=== PATIENT | female | born 1940 | race Caucasian/White ===

== ENCOUNTER 2018-12-10 20:10 | Inpatient (IN) | payer OTHER ==
[~2018-12-10] VITALS: Ht 165.1 cm; Wt 127.0 kg
[~2018-12-10 20:10] MED LIST: BACOFLEN; CITALOPRAM HBR20 MG; CYMBALTA60 MG PO; FOSAMAX70 MG PO; KLONOPIN2 MG/TAB PO; LASIX20 MG PO; NITROQUICK0.4 MG SL; NORVASC2.5 M1; OXYCONTIN10 MG PO; PERCOCET 5/3251 TAB PO; SEROQUEL300 MG PO; SEROQUEL400 MG; SIMBALTA; SOMA250 MG PO; SYNTHROID50 MCG PO; TOPROL XL50 MG PO; ZOCOR20 MG; [UNRECOGNIZED DRUG - OTHER]
--- NOTE | 2018-12-10 20:20 | NUR ---
SE RECIBE PACIENTE ALERTA Y ORIENTADA X3 DE UNIDAD DE AMBULANCIA. PACIENTE REFIERE DIFUCLTAD RESPIRATORIA DEBIDO A WALL CONDICION DE COPD DESDE ESTA MANANA. PACIENTE SE MUESTRA SASTURANDO 90% SIN OXIGENO. SE LE COLOCA PACIENTE EN CAMA Y SE LE PONE CANULA NASAL A 3 LITROS.
--- NOTE | 2018-12-10 20:39 | NUR ---
PACIENTE ALERTA Y ORIENTADA X3. SE ORIENTA SOBRE TX Y PROCEDIMIENTO A REALIZAR Y REFIERE ENTENDER. SE ADMINISTRA MEDICAMENTO MAICOL ORDEN MEDICA. SE REALIZA MUESTRAS DE LABORATORIO BAJO MEDIDAS ASEPTICAS. PACIENTE CON CANALIZACION EN BRAZO L+. SE NOTIFICO A MR. JOSE PERSONAL DE TERAPIA RESPIRATORIA LAS MISMAS Y ABG. SE MANTIENE BAJO OBSERVACION POR CAMBIOS SIGNIFICATIVOS. PENDIENTE PLACA PORTABLE DE PECHO.
--- NOTE | 2018-12-10 23:08 | NUR ---
PTE ALERTA CONSCIENTE Y ORIENTADA X3. SEMI SENTADA CANULA NASAL A 3 LITROS. H/L PATENTE. PTE EN COMPANIA DE FAMILIAR. CONSULTADO CON MEDICINA INTERNA.
--- NOTE | 2018-12-11 07:34 | NUR ---
PTE AL MOMENTO ESTABLE, ALERTA Y ORIENTADA X3 PENDIENTE A CONSULTA CON DR. CORTES. SE CONITNUA MONITOREANDO POR CAMBIOS.
[2018-12-12] MEDS ORDERED: BACLOFEN10 MG PO (09:31)
== END 2018-12-25 17:34 | disposition home health service (06) | DRG 191 ==
LOC: ER 20:10 → MEDJ 12-11 12:35 → SEC-K 12-11 12:35 → SURH 12-11 12:35 → MEDI 12-11 12:35 → MEDJ 12-13 13:57 → SURH 12-18 02:30
PROVIDERS: ADMIT Specialist
PROC: 3E0F7GC Introduction of Other Therapeutic Substance into Respiratory Tract, Via Natural or Artificial Opening (ICD-10-PCS; principal; 2018-12-11)
PROC: 4A033R1 Measurement of Arterial Saturation, Peripheral, Percutaneous Approach (ICD-10-PCS; 2018-12-11)
PROC: 02HV33Z Insertion of Infusion Device into Superior Vena Cava, Percutaneous Approach (ICD-10-PCS; 2018-12-11)
PROC: 0T9B70Z Drainage of Bladder with Drainage Device, Via Natural or Artificial Opening (ICD-10-PCS; 2018-12-11)
PROC: BW03ZZZ Plain Radiography of Chest (ICD-10-PCS; 2018-12-13)
PROC: B246ZZZ Ultrasonography of Right and Left Heart (ICD-10-PCS; 2018-12-13)
PROC: 8E0ZXY6 Isolation (ICD-10-PCS; 2018-12-13)
DX: J44.1 Chronic obstructive pulmonary disease with (acute) exacerbation (principal); J90 Pleural effusion, not elsewhere classified; F33.1 Major depressive disorder, recurrent, moderate; J45.42 Moderate persistent asthma with status asthmaticus; B96.0 Mycoplasma pneumoniae [M. pneumoniae] as the cause of diseases classified elsewhere; J20.9 Acute bronchitis, unspecified; E66.01 Morbid (severe) obesity due to excess calories; I10 Essential (primary) hypertension; Z74.01 Bed confinement status; N39.498 Other specified urinary incontinence

== ENCOUNTER 2019-01-09 18:47 | Inpatient (IN) | payer OTHER ==
[~2019-01-09] VITALS: Ht 167.6 cm; Wt 145.1 kg
[~2019-01-09 18:47] MED LIST changes: +BACLOFEN10 MG PO
[2019-01-09] MEDS ORDERED: IBESARTAN (19:28)
[2019-01-09] MEDS ORDERED: HYDROCHLOROTH12.5 M1 (19:28)
[2019-01-09] MEDS ORDERED: AMLODIPINE BES2.5 MG (19:29)
[2019-01-09] MEDS ORDERED: INTESTINEX680 M1 (19:29)
[2019-01-09] MEDS ORDERED: DOXYCYCLINE HY100 MG (19:29)
[2019-01-09] MEDS ORDERED: SIMVASTATIN20 MG (19:30)
[2019-01-09] MEDS ORDERED: QUETIAPINE FUM400 M1 (19:31)
[2019-01-09] MEDS ORDERED: CITALOPRAM HBR20 MG (19:32)
[2019-01-11] MEDS ORDERED: AVAPRO150 MG (08:55)
== END 2019-01-19 19:34 | disposition home or self-care (01) | DRG 291 ==
LOC: ER 18:47 → SEC-K 01-10 11:55 → MEDJ 01-10 11:55
PROVIDERS: ADMIT Specialist
PROC: 3E0F7GC Introduction of Other Therapeutic Substance into Respiratory Tract, Via Natural or Artificial Opening (ICD-10-PCS; principal; 2019-01-10)
PROC: 4A033R1 Measurement of Arterial Saturation, Peripheral, Percutaneous Approach (ICD-10-PCS; 2019-01-10)
DX: I11.0 Hypertensive heart disease with heart failure (principal); I50.31 Acute diastolic (congestive) heart failure; J80 Acute respiratory distress syndrome; J44.1 Chronic obstructive pulmonary disease with (acute) exacerbation; J45.22 Mild intermittent asthma with status asthmaticus; J90 Pleural effusion, not elsewhere classified; F31.89 Other bipolar disorder; J45.40 Moderate persistent asthma, uncomplicated; Z79.4 Long term (current) use of insulin; E66.01 Morbid (severe) obesity due to excess calories; I35.0 Nonrheumatic aortic (valve) stenosis; Z74.01 Bed confinement status; E09.9 Drug or chemical induced diabetes mellitus without complications; T36 Poisoning by, adverse effect of and underdosing of systemic antibiotics; N39.498 Other specified urinary incontinence; G47.33 Obstructive sleep apnea (adult) (pediatric); J20.9 Acute bronchitis, unspecified

== ENCOUNTER 2019-05-25 19:46 | Inpatient (IN) | payer OTHER ==
[~2019-05-25] VITALS: Ht 167.6 cm; Wt 126.6 kg
[~2019-05-25 19:46] MED LIST changes: +AMLODIPINE BES2.5 MG; +AVAPRO150 MG; +DOXYCYCLINE HY100 MG; +HYDROCHLOROTH12.5 M1; +IBESARTAN; +INTESTINEX680 M1; +QUETIAPINE FUM400 M1; +SIMVASTATIN20 MG
[2019-05-25] MEDS ORDERED: ATENOLOL25 MG (20:08)
[2019-05-25] MEDS ORDERED: SINGULAIR4 M1 PO (20:08)
== END 2019-06-06 16:14 | DRG 190 ==
LOC: ER 19:46 → MEDI 05-26 07:30 → SURH 05-26 07:30
PROVIDERS: ADMIT Specialist
PROC: 4A033R1 Measurement of Arterial Saturation, Peripheral, Percutaneous Approach (ICD-10-PCS; principal; 2019-05-26)
PROC: 3E0F7GC Introduction of Other Therapeutic Substance into Respiratory Tract, Via Natural or Artificial Opening (ICD-10-PCS; 2019-05-26)
PROC: BB24ZZZ Computerized Tomography (CT Scan) of Bilateral Lungs (ICD-10-PCS; 2019-05-28)
PROC: 02HV33Z Insertion of Infusion Device into Superior Vena Cava, Percutaneous Approach (ICD-10-PCS; 2019-05-30)
DX: J44.1 Chronic obstructive pulmonary disease with (acute) exacerbation (principal); B37.1 Pulmonary candidiasis; F31.89 Other bipolar disorder; J90 Pleural effusion, not elsewhere classified; J45.41 Moderate persistent asthma with (acute) exacerbation; J21.8 Acute bronchiolitis due to other specified organisms; J44.0 Chronic obstructive pulmonary disease with (acute) lower respiratory infection; J20.9 Acute bronchitis, unspecified; E66.01 Morbid (severe) obesity due to excess calories; R09.02 Hypoxemia; R06.89 Other abnormalities of breathing; J98.6 Disorders of diaphragm; N39.45 Continuous leakage; I35.0 Nonrheumatic aortic (valve) stenosis; Z74.01 Bed confinement status; Z99.81 Dependence on supplemental oxygen; B95.2 Enterococcus as the cause of diseases classified elsewhere

== ENCOUNTER 2019-06-22 10:53 | Inpatient (IN) | payer OTHER ==
[~2019-06-22] VITALS: Ht 167.6 cm; Wt 124.7 kg
[~2019-06-22 10:53] MED LIST changes: +ATENOLOL25 MG; +SINGULAIR4 M1 PO
[2019-06-22] MEDS ORDERED: CITALOPRAM HBR20 MG (10:56)
[2019-06-22] MEDS ORDERED: OXYCODON-ACETA1 EACH (10:57)
[2019-06-22] MEDS ORDERED: NORVASC2.5 MG (10:58)
[2019-06-22] MEDS ORDERED: SIMVASTATIN20 MG PO (10:58)
[2019-06-22] MEDS ORDERED: BACLOFEN10 MG PO (10:58)
[2019-06-22] MEDS ORDERED: HYDROCHLOROTH12.5 M1 PO (10:59)
[2019-06-22] MEDS ORDERED: COZAAR100 MG PO (10:59)
== END 2019-06-25 19:04 | DRG 191 ==
LOC: ER 10:53 → MEDJ 15:23
PROVIDERS: ADMIT Specialist
PROC: 3E0F7GC Introduction of Other Therapeutic Substance into Respiratory Tract, Via Natural or Artificial Opening (ICD-10-PCS; principal; 2019-06-22)
PROC: 4A033R1 Measurement of Arterial Saturation, Peripheral, Percutaneous Approach (ICD-10-PCS; 2019-06-22)
PROC: BW28ZZZ Computerized Tomography (CT Scan) of Head (ICD-10-PCS; 2019-06-22)
DX: J44.1 Chronic obstructive pulmonary disease with (acute) exacerbation (principal); E87.2 Acidosis; F31.11 Bipolar disorder, current episode manic without psychotic features, mild; T40.2X1A Poisoning by other opioids, accidental (unintentional), initial encounter; E66.01 Morbid (severe) obesity due to excess calories; G47.39 Other sleep apnea; J20.9 Acute bronchitis, unspecified; J45.40 Moderate persistent asthma, uncomplicated; R09.02 Hypoxemia; I10 Essential (primary) hypertension; Z74.01 Bed confinement status; I35.0 Nonrheumatic aortic (valve) stenosis; F31.75 Bipolar disorder, in partial remission, most recent episode depressed